=== PATIENT | male | born 1935 | race Caucasian/White ===

== ENCOUNTER 2021-05-07 11:56 | Inpatient (IN) | payer MEDICARE ==
[~2021-05-07] VITALS: Ht 195.6 cm; Wt 119.3 kg
[2021-05-07 12:58] LABS: HCT 47.7 % (42.0-52.0); HGB 15.5 g/dl (13.2-18.0); LYMPHOCYTE 9.1 % (15-48); MCH 32.4 pg (25.0-31.0); MCHC 32.5 g/dL (32.0-36.0); MCV 99.6 fL (78.0-100.0); MONOCYTE 7.9 % (0-12); NEUTROPHIL 65.4 % (41-80); NRBC 0; PLT 246 K/uL (150-400); RBC 4.79 M/uL (4.70-6.00); RDW 13.3 % (11.5-14.0); WBC 12.3 K/uL (4.0-10.5)
[2021-05-07 13:25] LABS: INR 1.14 (0.9-1.2)
[2021-05-07 13:26] LABS: LACTIC ACID 1.3 mmol/L (0.4-1.9)
[2021-05-07 13:31] LABS: CORONAVIRUS 2019 SARS-COV-2 NEGATIVE (NEGATIVE); INFLUENZA A NAA NEGATIVE (NEGATIVE)
[2021-05-07 13:36] LABS: ALBUMIN 2.9 g/dL (3.4-5.0); BILIRUBIN - TOTAL 0.7 mg/dL (0.2-1.0); BUN/CREAT RATIO (CALC) 21.7 RATIO; CREATININE 0.83 mg/dL (0.67-1.17); GLOBULIN (CALCULATION) 5.3 g/dL; POTASSIUM 3.7 mmol/L (3.5-5.1); TOTAL PROTEIN 8.2 g/dL (6.4-8.2)
[2021-05-07 13:44] LABS: BILIRUBIN NEGATIVE (NEGATIVE); BLOOD 3+ Ery/uL (NEGATIVE); CLARITY CLOUDY (CLEAR); COLOR ORANGE (YELLOW); GLUCOSE (U) NORMAL (NORMAL); LEUKOCYTES TRACE Leu/uL (NEGATIVE); NITRITE POSITIVE (NEGATIVE); PROTEIN 2+ mg/dL (NEGATIVE); SPECIFIC GRAVITY 1.025 (1.001-1.030)
[2021-05-07 13:53] LABS: BACTERIA 2+; URINARY RBC TNTC
[2021-05-07] MEDS ORDERED: ASPIRIN EC81 MG PO (23:08)
[2021-05-08 06:50] LABS: HCT 45.6 % (42.0-52.0); HGB 14.3 g/dl (13.2-18.0); LYMPHOCYTE 10.1 % (15-48); MCH 31.9 pg (25.0-31.0); MCHC 31.4 g/dL (32.0-36.0); MCV 101.8 fL (78.0-100.0); MONOCYTE 7.8 % (0-12); MPV 11.4 fL (6.0-9.5); NEUTROPHIL 63.9 % (41-80); NRBC 0; PLT 250 K/uL (150-400); RBC 4.48 M/uL (4.70-6.00); RDW 13.4 % (11.5-14.0); WBC 12.6 K/uL (4.0-10.5)
[2021-05-08 07:08] LABS: EOSINOPHIL 16.5 % (0-7)
[2021-05-08 07:27] LABS: BUN/CREAT RATIO (CALC) 26.8 RATIO; CREATININE 0.82 mg/dL (0.67-1.17); MAGNESIUM 2.1 mg/dL (1.8-2.4); POTASSIUM 3.8 mmol/L (3.5-5.1)
--- NOTE | 2021-05-08 14:08 | NUR ---
MET WITH MR. LOUISE AND HIS SPOUSE. DISCUSSED OPTIONS REGARDING PT'S CARE. PT ONLY HAS MEDICARE PART A. HE DID NOT CHOSE MED PART B HE COULD NOT AFFORD THE COST. PT. STATES THAT HE CANNOT HAVE A PCP DUE TO NOT HAVING PART B INSURANCE. HE ALSO STATES THAT HE DOES NOT HAVE MEDICARE PART D FOR PRESCRIPTIONS. DR. NAOMIE VERA, METAL WASHING MACHINE OPERATOR, GAVE THE PT A 30 DAY FREE TRIAL FOR ELIQUIS. PT STATED THAT HE COULD NOT AFFORD THE MEDICATION AFTER THE TRIAL AND HE WOULD NOT BE GETTING IT. HE WOULD CONTINUE TO TAKE HIS ASPIRIN. I HAVE ADVISED PT AND HIS SPOUSE OF THE [facility] WHERE HE MAY GO FOR MEDICAL CARE AND ASSISTANCE WITH PRESCRIPTIONS. [phone] GAVE THEM INFORAMTION REGARDING "MARY" WHICH IS AN INSURANCE ASSISTANCE PROGRAM THROUGH [employer]. [phone]. ALSO, FOR THEM TO CONTACT SOCIAL SECURITY AND ASK FOR EXTRA HELP AT [phone]. ALSO ADVISED THAT THEY MAY GO TO [facility] FOR A WHEELCHAIR IF THEY FEEL HE COULD BENEFIT FROM ONE. ADVISED THAT IF OXYGEN IS REQUIRED IT WOULD COST $75.00 A MONTH. PT STATED THAT HE WAS A , BUT NEVER APPLIED FOR BENEFITS. I ADVISED HIM THAT HE WOULD BE ABLE TO RECEIVE SERVICES FROM ME THROUGH THE [facility]ITY [facility]ED PROGRAM IE HH, OXYGEN, MEDICATION, PCP., BUT HE REFUSED AND SAID THAT IT WOULD NEVER HAPPEN. ADVISED THE NURSE, NESTOR AND DR. REA OF THE ABOVE INFORMATION.
--- NOTE | 2021-05-09 00:57 | NUR ---
2250- RESP NOTIFED TO GIVE PRN RESP TX AND NEW ORDER RECIEVED FOR LASIX 20MG IVSP NOW FOR SOA AND INCREASED EDEMA. HOB MAINTAINED IN 45 DEGREES.
--- NOTE | 2021-05-09 05:31 | NUR ---
0530- PATIENT PRESENTS WITH INCREASED SOA AUTIBLE WHEEZES WITHOUT SCOPE WITHOUT EXERTION. RESP TECH NOTIFED FOR RESP TX, TELEPHONY ENGINEER NOTFIED R/T INCREASED SOA, NEW ORDER PENDING.
[2021-05-09 07:33] LABS: BUN/CREAT RATIO (CALC) 28.8 RATIO; CREATININE 0.73 mg/dL (0.67-1.17); POTASSIUM 3.9 mmol/L (3.5-5.1)
[2021-05-09 08:58] LABS: C-REACTIVE PROTEIN 13.8 mg/dL (<=0.90)
[2021-05-09 18:17] LABS: WBC (FLUID) 664 WBC/uL
[2021-05-09 18:21] LABS: CLARITY (FLUID) CLEAR; COLOR (FLUID) YELLOW
[2021-05-09 19:12] LABS: RBC (FLUID) 1050 RBC/uL
[2021-05-11 05:50] LABS: BASOPHIL 0.2 % (0-2); EOSINOPHIL 0.1 % (0-7); HCT 48.1 % (42.0-52.0); LYMPHOCYTE 6.7 % (15-48); MCH 31.8 pg (25.0-31.0); MCHC 31.2 g/dL (32.0-36.0); MCV 101.9 fL (78.0-100.0); MONOCYTE 1.7 % (0-12); MPV 11.3 fL (6.0-9.5); NEUTROPHIL 90.7 % (41-80); NRBC 0; PLT 256 K/uL (150-400); RBC 4.72 M/uL (4.70-6.00); WBC 11.1 K/uL (4.0-10.5)
[2021-05-11 06:29] LABS: ALBUMIN 2.5 g/dL (3.4-5.0); BILIRUBIN - TOTAL 0.3 mg/dL (0.2-1.0); BUN/CREAT RATIO (CALC) 27.3 RATIO; C-REACTIVE PROTEIN 13.1 mg/dL (<=0.90); CREATININE 0.77 mg/dL (0.67-1.17); POTASSIUM 4.6 mmol/L (3.5-5.1); TOTAL PROTEIN 7.5 g/dL (6.4-8.2)
--- NOTE | 2021-05-11 15:32 | NUR ---
MET WITH PT. SON, APOLINAR LOUISE. [phone]. HE ADVISED THAT HE HAS PREPAR[facility] TO [facility]IST HIS FATHER IN APPLYING FOR BENEFITS. I ASSISTED APOLINAR IN FAXING THE [facility] TO [facility].
[2021-05-12 06:10] LABS: BASOPHIL 0.1 % (0-2); EOSINOPHIL 0 % (0-7); HCT 46.6 % (42.0-52.0); HGB 14.6 g/dl (13.2-18.0); LYMPHOCYTE 5.1 % (15-48); MCH 31.5 pg (25.0-31.0); MCHC 31.3 g/dL (32.0-36.0); MCV 100.6 fL (78.0-100.0); MONOCYTE 1.5 % (0-12); MPV 11.6 fL (6.0-9.5); NEUTROPHIL 92.7 % (41-80); NRBC 0; PLT 267 K/uL (150-400); RBC 4.63 M/uL (4.70-6.00); RDW 13.1 % (11.5-14.0); WBC 13.7 K/uL (4.0-10.5)
[2021-05-12 07:46] LABS: BUN/CREAT RATIO (CALC) 40.3 RATIO; C-REACTIVE PROTEIN 7.2 mg/dL (<=0.90); CREATININE 0.77 mg/dL (0.67-1.17); MAGNESIUM 2.2 mg/dL (1.8-2.4); POTASSIUM 4.3 mmol/L (3.5-5.1)
[2021-05-13 05:48] LABS: BASOPHIL 0.1 % (0-2); EOSINOPHIL 0 % (0-7); HCT 47.5 % (42.0-52.0); HGB 14.9 g/dl (13.2-18.0); LYMPHOCYTE 5.4 % (15-48); MCH 31.8 pg (25.0-31.0); MCHC 31.4 g/dL (32.0-36.0); MCV 101.5 fL (78.0-100.0); MONOCYTE 2.3 % (0-12); MPV 11.4 fL (6.0-9.5); NEUTROPHIL 91.5 % (41-80); NRBC 0; PLT 244 K/uL (150-400); RBC 4.68 M/uL (4.70-6.00); RDW 13.2 % (11.5-14.0)
[2021-05-13 05:55] LABS: WBC 13.5 K/uL (4.0-10.5)
[2021-05-13 06:12] LABS: BUN/CREAT RATIO (CALC) 45.8 RATIO; CREATININE 0.83 mg/dL (0.67-1.17); POTASSIUM 4.2 mmol/L (3.5-5.1)
--- NOTE | 2021-05-13 13:20 | NUR ---
THORACENTISIS WAS DONE AT BEDSIDE 590 YELLOW FLUID WAS OBTAINED AND SENTTO LAB, DR REA EXPLAINED PROCEDURE AND REASON FOR THE PROCEDURE TO PATIENT AND HIS .
--- NOTE | 2021-05-13 18:33 | NUR ---
GILA WRAPS APPLIED TO BRAULIO LOWER EXT, FOR HIS LYMPHEDEMA AND SWELLING,PER MD ORDER
[2021-05-14 14:11] LABS: ANTIMYELOPEROXIDASE (MPO) ABS <9.0 U/mL (0.0-9.0); ANTIPROTEINASE 3 (PR-3) ABS <3.5 U/mL (0.0-3.5); ATYPICAL PANCA <1:20 titer (Neg:<1:20); CYTOPLASMIC (C-ANCA) <1:20 titer (Neg:<1:20); PERINUCLEAR (P-ANCA) <1:20 titer (Neg:<1:20)
[2021-05-16 00:08] LABS: ASPERGILLUS FLAVUS Negative (Neg:<1:1); ASPERGILLUS FUMIGATUS Negative (Neg:<1:1); ASPERGILLUS NIGER Negative (Neg:<1:1)
== END 2021-05-13 22:03 | disposition other institution (70) | DRG 196 ==
LOC: FER 11:56 → FMS 14:57 → FOFB 14:57 → FMS 14:58 → FICU 05-09 08:43 → FTCU 05-10 07:34
PROVIDERS: Family Medicine; Nurse Practitioner Family; ADMIT Allergy & Immunology Allergy
PROC: 0W993ZZ Drainage of Right Pleural Cavity, Percutaneous Approach (ICD-10-PCS; principal; 2021-05-09)
PROC: 5A09357 Assistance with Respiratory Ventilation, Less than 24 Consecutive Hours, Continuous Positive Airway Pressure (ICD-10-PCS; 2021-05-09)
PROC: 5A09357 Assistance with Respiratory Ventilation, Less than 24 Consecutive Hours, Continuous Positive Airway Pressure (ICD-10-PCS; 2021-05-10)
DX: J82.81 Chronic eosinophilic pneumonia (principal); J18.9 Pneumonia, unspecified organism; J96.01 Acute respiratory failure with hypoxia; J96.02 Acute respiratory failure with hypercapnia; N39.0 Urinary tract infection, site not specified; J98.11 Atelectasis; J90 Pleural effusion, not elsewhere classified; Z66 Do not resuscitate; Z20.822 Contact with and (suspected) exposure to COVID-19; I48.91 Unspecified atrial fibrillation; M19.90 Unspecified osteoarthritis, unspecified site; I87.2 Venous insufficiency (chronic) (peripheral); R31.9 Hematuria, unspecified; I27.20 Pulmonary hypertension, unspecified; Z90.49 Acquired absence of other specified parts of digestive tract; Z98.890 Other specified postprocedural states
CPT/HCPCS: 36415; 36600; 71045; 71046; 71250; 71275; 80048; 80053; 80061; 81001; 82785; 82803; 82945; 83036; 83520; 83605; 83615; 83735; 83880; 84145; 84157; 84443; 84484; 85025; 85379; 85610; 86003; 86140; 86256; 87040; 87070; 87088; 87449; 89051; 93005; 94010; 94640; 94660; 94667; 94668; 97162; 97166; 97530-GP; 97535; J0456; J0696; J1650; J1940; J2020; J2270; J2920; J2930; J7050; Q9967; U0002